=== PATIENT | male | born 1975 | race Caucasian/White ===

== ENCOUNTER 2017-02-13 16:35 | Emergency (ER) | payer SELFPAY ==
[~2017-02-13] VITALS: Ht 170.2 cm; Wt 75.0 kg
[~2017-02-13 16:35] MED LIST: ELVITAB PO; PRAM1 PO
[2017-02-13 16:37] VITALS: BP 133/71; PULSE 90; RESP 14; TEMP 99.5; O2SAT 97
[2017-02-13] MEDS ORDERED: PRAM1 PO (17:00)
[2017-02-13] MEDS ORDERED: ELVI1TAB3 PO (17:00)
[2017-02-13] MEDS ORDERED: IBUP800T23 PO (17:22)
[2017-02-13] MEDS ORDERED: CLIN1CAP5 PO (17:22)
--- NOTE | 2017-02-13 17:23 | PD ---
HPI Chief Complaint: Skin Problem Time Seen by Provider: 17:19 Travel History International Travel<30 days: No Contact w/Intl Traveler<30days: No Traveled to known affect area: No History of Present Illness HPI 31-year-old male presents emergency Department with complaint of an infection to his right third digit that started today. He said he was cleaning out his garage and doesn't know if he got stung by something or something poked him in the finger. He had worsening of symptoms with pain, reddening, and swelling of the finger. Denies fever, vomiting. Reports feeling nauseated earlier. Denies paresthesias, loss of sensation to the affected finger. Reports decreased range of motion at the PIP joint. Has not taken any medications or tried any treatments to alleviate his symptoms. Reports being HIV positive and history of staph infection. Allergies to Benadryl. Has no other medical complaints. Symptoms are moderate in severity. Up-to-date on tetanus vaccination. No other modifying factors or associated signs and symptoms. PFSH Past Medical History Autoimmune Disease: Yes (HIV) Diabetes: Yes Diminished Hearing: No Past Surgical History Other Surgery: Yes (EAR SURG-WISDOM TEETH REMOVED-NASAL SURG-RIGHT HERNIA REPAIR) Social History Alcohol Use: No Tobacco Use: Yes Substance Use: No Allergies-Medications (Allergen,Severity, Reaction): Coded Allergies: diphenhydramine (Unverified Allergy, Mild, 12/15/16) Reported Meds & Prescriptions Reported Meds & Active Scripts Active Ibuprofen 800 Mg Tab 800 Mg PO Q6HR PRN Clindamycin (Clindamycin HCl) 150 Mg Cap 450 Mg PO Q6H 10 Days Reported Genvoya (Jautcigqqkzd-Uramyryvqr-Ctoewigjbrlo-Tenofvir) [phone] Mg Tab 1 Tab PO DAILY Mirapex (Pramipexole Dihydrochloride) 1 Mg Tab 1 Mg PO DAILY Review of Systems Except as stated in HPI: all other systems reviewed are Neg Physical Exam Narrative GENERAL: Well-nourished, well-developed male patient, in no acute distress SKIN: Warm and dry. Right distal third finger with area of erythema, edema, warmth to touch; there is a small blister type area in the middle of the erythema that is fluctuant; finger with limited range of motion of the PIP joint ; sensory intact; less than 3 second cap refill; no lymphangitis. Right upper extremity supple and non-tense with 2+ radial pulse and sensory intact and without erythema or edema. HEAD: Atraumatic. Normocephalic. EYES: Pupils equal and round. No scleral icterus. No injection or drainage. ENT: Mucosa pink and moist. Airway patent. NECK: Trachea midline. CARDIOVASCULAR: Regular rate. RESPIRATORY: No accessory muscle use. GASTROINTESTINAL: Flat. MUSCULOSKELETAL: No obvious deformities. No clubbing. No cyanosis. No edema. NEUROLOGICAL: Awake and alert. Oriented 3. No obvious cranial nerve deficits. Motor grossly within normal limits. Normal speech. PSYCHIATRIC: Appropriate mood and affect; insight and judgment normal. Data Data Last Documented VS Vital Signs Date Time Temp Pulse Resp B/P (MAP) Pulse Ox O2 Delivery O2 Flow Rate FiO2 02/13/17 16:37 99.5 90 14 133/71 (91) 97 Orders Orders Clindamycin Inj (Cleocin Inj) (02/13/17 17:30) Wound Culture And Gram Stain (02/13/17 17:19) Bupivacaine Pf 0.5% Inj (Marcaine Pf 0.5 (02/13/17 17:30) Lidocaine 1% Inj (50 Ml) (Xylocaine 1% I (02/13/17 17:30) Ed Discharge Order (02/13/17 17:24) [facility] Medical Decision Making Medical Screen Exam Complete: Yes Emergency Medical Condition: Yes Medical Record Reviewed: Yes Differential Diagnosis Cellulitis, abscess, wound infection Narrative Course 41-year-old male with cellulitis of the third finger of the right hand. See my procedure note for incision and drainage of blistered area on the finger. Wound culture pending. Tetanus is up-to-date. Clindamycin 600 mg IM administered in the ER. Clindamycin, ibuprofen prescribed for home. Instructed patient to follow up with primary care provider. Patient verbalizes understanding and agreement with treatment plan. Patient is medically cleared and stable for discharge. Discussed reasons to return to the emergency department. Patient agrees with treatment plan. The patients vital signs are stable and the patient is stable for outpatient follow-up and treatment. Patient discharged home, stable and in no acute distress. Procedures Procedure Narrative INCISION AND DRAINAGE OF BLISTER: The area was prepped and was sterilely draped. The right third finger was digitally blocked with 1% lidocaine and 0.5 % bupivacaine. A number 11 scalpel was used to make a less than 0.5 -cm incision across the area of the blister area. The blister was drained. Cultures were obtained. Sterile dressing applied. Diagnosis Primary Impression: Cellulitis of finger of right hand Referrals: [facility] Primary Care Physician Patient Instructions: Abscess (ED), Abscess Follow-up (ED), Cellulitis (ED), General Instructions Departure Forms: Tests/Procedures, Work Release Enter return to work date: Feb 15, 2017 Additional Instructions: Complete full course of antibiotics Warm compresses to the affected area Keep area clean and dry Ibuprofen or Tylenol as directed and as needed for pain and inflammation Follow-up with primary care provider Return to emergency department immediately with worsening of symptoms Med/Other Pt SpecificInfo: Prescription(s) given Scripts Ibuprofen (Ibuprofen) 800 Mg Tab 800 MG PO Q6HR Y for PAIN, #30 TAB 0 Refills Prov: Emmy Smith 02/13/17 Clindamycin (Clindamycin) 150 Mg Cap 450 MG PO Q6H for Infection for 10 Days, #120 CAP 0 Refills Prov: Emmy Smith 02/13/17 Disposition: 01 DISCHARGE HOME Condition: Stable Emmy Smith Feb 13, 2017 17:23
[2017-02-13] MEDS ORDERED: LIDOCAINE HCL 1% 50 ML VIAL INFIL ONE (17:30)
[2017-02-13] MEDS ORDERED: CLINDAMYCIN PHOS 600 MG/4 ML VIAL IM ONE (17:30)
[2017-02-13] MEDS ORDERED: BUPIVACAINE HCL PF 0.5% 10 ML VIAL INFIL ONE (17:30)
== END 2017-02-13 18:18 | disposition home or self-care (01) ==
LOC: NEPK 16:35
DX: L03.011 Cellulitis of right finger (principal); E11.9 Type 2 diabetes mellitus without complications; Z21 Asymptomatic human immunodeficiency virus [HIV] infection status; F17.200 Nicotine dependence, unspecified, uncomplicated
CPT/HCPCS: 10060; 86403; 87070; 87186; 87205; 96372

== ENCOUNTER 2017-05-29 15:15 | Emergency (ER) | payer SELFPAY ==
[~2017-05-29] VITALS: Ht 170.2 cm; Wt 72.0 kg
[~2017-05-29 15:15] MED LIST changes: +CLIN150C14 PO; +ELVI1TAB3 PO; -ELVITAB PO; +IBUP1TAB7 PO
[2017-05-29 15:16] VITALS: BP 152/74; PULSE 90; RESP 16; TEMP 98.5; O2SAT 97
[2017-05-29] MEDS ORDERED: SULFAMETHOXAZOLE-TRIMETHOPRIM DS 800-160 MG TAB PO ONE (16:15)
[2017-05-29] MEDS ORDERED: KETOROLAC TROMETHAMINE 30 MG/ML (IVP) VIAL IV PUSH ONE (16:15)
[2017-05-29] MEDS ORDERED: CLINDAMYCIN 600 MG/NS PREMIX 50 ML IV ONE (16:15)
[2017-05-29] MEDS ORDERED: SODIUM CHLOR 0.9% 1000 ML INJ 1,000 ML IV ONE (16:15)
--- NOTE | 2017-05-29 16:29 | PD ---
HPI Chief Complaint: Fever Time Seen by Provider: 16:12 Travel History International Travel<30 days: No Contact w/Intl Traveler<30days: No Traveled to known affect area: No History of Present Illness HPI The patient is a 42-year-old male who presents to the emergency department for an abscess to the nose. The patient states he's had pain over the medial aspect of the nose since last night, has some increased swelling, mild drainage, and tenderness. He then developed a fever 103.1 at home per his report. The patient take Motrin this morning which did lower the fever. The patient does have a history of HIV, is currently not on antivirals. He does not know what his last CD4 count or viral load was, he is not under the care of the infectious disease physician at this time. He denies any cough, chest pain , nausea, vomiting, diarrhea, abdominal pain, or dysuria. Symptoms are moderate , he denies any alleviating or exacerbating factors. He denies any IV drug abuse and states he is currently living in a clean and sober house and requests that no narcotics be given. PFSH Past Medical History Autoimmune Disease: Yes (HIV) Diabetes: Yes Patient Takes Glucophage: No Diminished Hearing: No ?: Not Past Surgical History Other Surgery: Yes (EAR SURG-WISDOM TEETH REMOVED-NASAL SURG-RIGHT HERNIA REPAIR) Social History Alcohol Use: No Tobacco Use: Yes Substance Use: No Allergies-Medications (Allergen,Severity, Reaction): Coded Allergies: diphenhydramine (Unverified Allergy, Mild, 12/15/16) Reported Meds & Prescriptions Reported Meds & Active Scripts Active Ibuprofen 800 Mg Tab 800 Mg PO Q6HR PRN Clindamycin (Clindamycin HCl) 150 Mg Cap 450 Mg PO Q6H 10 Days Reported Genvoya (Tzytbsbeowkk-Zugubswaoh-Igwaqtxqrowr-Tenofvir) [phone] Mg Tab 1 Tab PO DAILY Mirapex (Pramipexole Dihydrochloride) 1 Mg Tab 1 Mg PO DAILY Review of Systems General / Constitutional: Positive: Fever HENT: Positive: Other (as noted in the history of present illness) Cardiovascular: No: Chest Pain or Discomfort Respiratory: No: Shortness of Breath Gastrointestinal: No: Nausea, Vomiting, Abdominal Pain Musculoskeletal: No: Myalgias Neurologic: No: Dizziness Hematologic/Lymphatic: Positive: Other (history of HIV) Physical Exam Narrative GENERAL: Awake, alert, pleasant 42-year-old male who appears his stated age and is in no acute respiratory distress. SKIN: Focused skin assessment warm/dry. HEAD: Atraumatic. Normocephalic. EYES: Pupils equal and round. No scleral icterus. No injection or drainage. ENT: Inspection of the nose does reveal that the patient has some swelling over the nasal bridge of the anterior aspect with a small amount of scabbing and crusting in the medial aspect of the left naris. Tenderness is noted. NECK: Trachea midline. No JVD. CARDIOVASCULAR: Regular rate and rhythm. No murmur appreciated. RESPIRATORY: No accessory muscle use. Clear to auscultation. Breath sounds equal bilaterally. GASTROINTESTINAL: Abdomen soft, non-tender, nondistended. MUSCULOSKELETAL: No obvious deformities. No clubbing. No cyanosis. No edema. NEUROLOGICAL: Awake and alert. No obvious cranial nerve deficits. Motor grossly within normal limits. Normal speech. PSYCHIATRIC: Appropriate mood and affect; insight and judgment normal. Data Data Last Documented VS Vital Signs Date Time Temp Pulse Resp B/P (MAP) Pulse Ox O2 Delivery O2 Flow Rate FiO2 05/29/17 15:16 98.5 90 16 152/74 (100) 97 Orders Orders Complete Blood Count With Diff (05/29/17 16:13) Lactic Acid (05/29/17 16:13) Blood Culture (05/29/17 16:13) Comprehensive Metabolic Panel (05/29/17 16:13) Clindamycin 600 Mg/Ns Premix (Cleocin 60 (05/29/17 16:15) Sulfamet-Trimeth Ds 800-160 Mg (Bactrim (05/29/17 16:15) Sodium Chlor 0.9% 1000 Ml Inj (Ns 1000 M (05/29/17 16:15) Ketorolac Inj (Toradol Inj) (05/29/17 16:15) Labs Laboratory Tests Test 05/29/17 16:45 White Blood Count 5.4 TH/MM3 Red Blood Count 4.77 MIL/MM3 Hemoglobin 14.0 GM/DL Hematocrit 40.1 % Mean Corpuscular Volume 84.1 FL Mean Corpuscular Hemoglobin 29.4 PG Mean Corpuscular Hemoglobin Concent 34.9 % Red Cell Distribution Width 13.2 % Platelet Count 160 TH/MM3 Mean Platelet Volume 7.7 FL Neutrophils (%) (Auto) 58.9 % Lymphocytes (%) (Auto) 28.3 % Monocytes (%) (Auto) 10.9 % Eosinophils (%) (Auto) 1.6 % Basophils (%) (Auto) 0.3 % Neutrophils # (Auto) 3.2 TH/MM3 Lymphocytes # (Auto) 1.5 TH/MM3 Monocytes # (Auto) 0.6 TH/MM3 Eosinophils # (Auto) 0.1 TH/MM3 Basophils # (Auto) 0.0 TH/MM3 CBC Comment AUTO DIFF Differential Comment AUTO DIFF CONFIRMED Platelet Estimate NORMAL Platelet Morphology Comment NORMAL Red Cell Morphology Comment NORMAL Blood Urea Nitrogen 12 MG/DL Creatinine 0.85 MG/DL Random Glucose 137 MG/DL Total Protein 8.0 GM/DL Albumin 3.6 GM/DL Calcium Level 8.6 MG/DL Alkaline Phosphatase 98 U/L Aspartate Amino Transf (AST/SGOT) 24 U/L Alanine Aminotransferase (ALT/SGPT) 31 U/L Total Bilirubin 0.5 MG/DL Sodium Level 138 MEQ/L Potassium Level 4.2 MEQ/L Chloride Level 105 MEQ/L Carbon Dioxide Level 27.4 MEQ/L Anion Gap 6 MEQ/L Estimat Glomerular Filtration Rate 98 ML/MIN Lactic Acid Level 1.9 mmol/L MDM Medical Decision Making Medical Screen Exam Complete: Yes Emergency Medical Condition: Yes Medical Record Reviewed: Yes Interpretation(s) Laboratory Tests Test 05/29/17 16:45 White Blood Count 5.4 TH/MM3 Red Blood Count 4.77 MIL/MM3 Hemoglobin 14.0 GM/DL Hematocrit 40.1 % Mean Corpuscular Volume 84.1 FL Mean Corpuscular Hemoglobin 29.4 PG Mean Corpuscular Hemoglobin Concent 34.9 % Red Cell Distribution Width 13.2 % Platelet Count 160 TH/MM3 Mean Platelet Volume 7.7 FL Neutrophils (%) (Auto) 58.9 % Lymphocytes (%) (Auto) 28.3 % Monocytes (%) (Auto) 10.9 % Eosinophils (%) (Auto) 1.6 % Basophils (%) (Auto) 0.3 % Neutrophils # (Auto) 3.2 TH/MM3 Lymphocytes # (Auto) 1.5 TH/MM3 Monocytes # (Auto) 0.6 TH/MM3 Eosinophils # (Auto) 0.1 TH/MM3 Basophils # (Auto) 0.0 TH/MM3 CBC Comment AUTO DIFF Differential Comment AUTO DIFF CONFIRMED Platelet Estimate NORMAL Platelet Morphology Comment NORMAL Red Cell Morphology Comment NORMAL Blood Urea Nitrogen 12 MG/DL Creatinine 0.85 MG/DL Random Glucose 137 MG/DL Total Protein 8.0 GM/DL Albumin 3.6 GM/DL Calcium Level 8.6 MG/DL Alkaline Phosphatase 98 U/L Aspartate Amino Transf (AST/SGOT) 24 U/L Alanine Aminotransferase (ALT/SGPT) 31 U/L Total Bilirubin 0.5 MG/DL Sodium Level 138 MEQ/L Potassium Level 4.2 MEQ/L Chloride Level 105 MEQ/L Carbon Dioxide Level 27.4 MEQ/L Anion Gap 6 MEQ/L Estimat Glomerular Filtration Rate 98 ML/MIN Lactic Acid Level 1.9 mmol/L Differential Diagnosis Differential diagnosis includes abscess, cellulitis, bacteremia, septicemia, sepsis, SIRS, immunocompromise, infected wound. Narrative Course IV was established, labs are drawn and sent, and the patient was placed on cardiac telemetry monitoring and continuous pulse oximetry monitoring. Blood culture and lactic acid were sent to lab. The patient was administered clindamycin 600 mg intravenously and Bactrim times one with Toradol 30 mg intravenously and 1 L of IV fluids. White count is no. Lactic acid is 1.9. Patient does not meet sepsis criteria. The patient will be treated for MRSA with history of MRSA with clindamycin and Bactrim. He is advised to follow-up with a primary physician, I will refer him to the local clinic. Diagnosis Primary Impression: Nasal septal abscess Referrals: [facility] call for appointment Patient Instructions: General Instructions Additional Instructions: Please provide the patient a copy of his lab results at discharge. Follow-up with your primary physician. Return if symptoms worsen or progress. Medications as directed. Med/Other Pt SpecificInfo: Prescription(s) given Scripts Ibuprofen (Ibuprofen) 600 Mg Tab 600 MG PO Q6H Y for Pain/Inflammation, #20 TAB 0 Refills Prov: Gary Bauman MD 05/29/17 Clindamycin (Cleocin) 150 Mg Cap 150 MG PO Q6H for Infection for 10 Days, #40 CAP 0 Refills Prov: Gary Bauman MD 05/29/17 Sulfamethoxazole-Trimethoprim (Bactrim DS) 800-160 Mg Tab 1 TAB PO BID for Infection, #20 TAB 0 Refills Prov: Gary Bauman MD 05/29/17 Disposition: 01 DISCHARGE HOME Condition: Stable Gary Bauman MD May 29, 2017 16:29
[2017-05-29 17:16] LABS: AUTOMATED NEUTROPHIL # 3.2 TH/MM3 (1.8-7.7); BASOPHIL % 0.3 % (0.0-2.0); EOSINOPHIL # 0.1 TH/MM3 (0-0.4); EOSINOPHIL % 1.6 % (0.0-4.0); HEMATOCRIT 40.1 % (39.0-51.0); LYMPH % 28.3 % (9.0-44.0); LYMPHOCYTE # 1.5 TH/MM3 (1.0-4.8); MEAN CELL VOLUME 84.1 FL (80.0-100.0); MEAN CORPUSCULAR HEMOGLOBIN 29.4 PG (27.0-34.0); MEAN CORPUSCULAR HGB CONC 34.9 % (32.0-36.0); MEAN PLATELET VOLUME 7.7 FL (7.0-11.0); MONO % 10.9 % (0.0-8.0); MONOCYTE # 0.6 TH/MM3 (0-0.9); NEUT % 58.9 % (16.0-70.0); PLATELET COUNT 160 TH/MM3 (150-450); RED BLOOD COUNT 4.77 MIL/MM3 (4.50-5.90); RED CELL DISTRIBUTION WIDTH 13.2 % (11.6-17.2); WHITE BLOOD COUNT 5.4 TH/MM3 (4.0-11.0)
[2017-05-29 17:56] LABS: ALKALINE PHOSPHATASE 98 U/L (45-117); ALT (GPT) 31 U/L (12-78); TOTAL BILIRUBIN ADULT 0.5 MG/DL (0.2-1.0)
[2017-05-29 18:02] LABS: ALBUMIN 3.6 GM/DL (3.4-5.0); AST (GOT) 24 U/L (15-37); BICARBONATE 27.4 MEQ/L (21.0-32.0); BLOOD UREA NITROGEN 12 MG/DL (7-18); CALCIUM 8.6 MG/DL (8.5-10.1); CHLORIDE 105 MEQ/L (98-107); CREATININE 0.85 MG/DL (0.60-1.30); GLOMERULAR FILTRATION RATE 98 ML/MIN (>89); GLUCOSE,RANDOM 137 MG/DL (74-106); SODIUM (NA) 138 MEQ/L (136-145)
[2017-05-29 18:24] VITALS: BP 129/84; PULSE 72; PULSE 92; RESP 18; O2SAT 100
[2017-05-29] MEDS ORDERED: CLIN150 PO (18:25)
[2017-05-29] MEDS ORDERED: BACT800T5 PO (18:25)
[2017-05-29] MEDS ORDERED: IBUP-232 PO (18:25)
== END 2017-05-29 18:59 | disposition home or self-care (01) ==
LOC: NEPC 15:15
DX: J34.0 Abscess, furuncle and carbuncle of nose (principal); Z21 Asymptomatic human immunodeficiency virus [HIV] infection status; Z72.0 Tobacco use
CPT/HCPCS: 80053; 83605; 85025; 87040; 96361; 96374; 96375; 99284; J1885; J7030

== ENCOUNTER 2017-06-21 12:47 | Emergency (ER) | payer SELFPAY ==
[~2017-06-21 12:47] MED LIST changes: +BACT800T5 PO; +CLIN150 PO; +IBUP-232 PO
[2017-06-21 12:50] VITALS: BP 160/88; PULSE 82; RESP 16; TEMP 98.1; O2SAT 98
[2017-06-21] MEDS ORDERED: SODIUM CHLOR 0.9% 1000 ML INJ 1,000 ML IV SCH (13:36)
[2017-06-21] MEDS ORDERED: SODIUM CHLORIDE 0.9% FLUSH 10 ML FLUSH IV FLUSH PRN ×2 (13:45)
[2017-06-21] MEDS ORDERED: PENICILLIN G POTASSIUM INJ 2,500,000 UNITS in SODIUM CHLORIDE 0.9% INJ 100 ML IV ONE (14:00)
--- NOTE | 2017-06-21 14:02 | PD ---
HPI Chief Complaint: Skin Problem Time Seen by Provider: 13:36 Travel History International Travel<30 days: No Contact w/Intl Traveler<30days: No Traveled to known affect area: No History of Present Illness HPI 42-year-old male presents emergency department with dry rash which is started yesterday. Patient denies fever, chills, or other symptoms. He states he was ill 2 weeks ago with a flulike illness. Patient states he was treated 3 weeks ago for possible MRSA infection in his left naris. Patient states he is HIV positive and not under treatment since March of last year due to insurance issues. Patient states history of syphilis in the past he is concerned this is a syphilis flare. Patient denies eye pain, mouth patches, alopecia, or abdominal pain or cough. He denies any chancres, or urinary symptoms. His appetite is normal. And he has not lost significant amounts of weight. He is awaiting insurance changes to get back into therapy for his HIV. Patient denies significant headache, but does have some discomfort in the neck. He denies joint pain. He is allergic to diphenhydramine. PFSH Past Medical History Autoimmune Disease: Yes (HIV) Diabetes: Yes Patient Takes Glucophage: No Diminished Hearing: No Genitourinary: Yes (syphillis hx) Past Surgical History Other Surgery: Yes (EAR SURG-WISDOM TEETH REMOVED-NASAL SURG-RIGHT HERNIA REPAIR) Social History Alcohol Use: No Tobacco Use: Yes Substance Use: No Allergies-Medications (Allergen,Severity, Reaction): Coded Allergies: diphenhydramine (Unverified Adverse Reaction, Mild, interacts with restless legs, 06/21/17) Reported Meds & Prescriptions Reported Meds & Active Scripts Active No Active Prescriptions or Reported Medications Review of Systems Except as stated in HPI: all other systems reviewed are Neg General / Constitutional: No: Fever, Chills Eyes: No: Diploplia, Blurred Vision, Photophobia, Drainage, Redness, Foreign Body Sensation, Pain, Tearing, Blind Spots, Visual changes, Blindness HENT: Positive: Neck Stiffness, Neck Pain, No: Headaches, Vertigo, Lightheadedness, Sore Throat, Rhinitis, Rhinorrhea, Congestion, Nosebleed, Masses, Gingival Bleeding, Dental Difficulties, Ear Discharge, Earache Cardiovascular: No: Chest Pain or Discomfort Respiratory: No: Cough, Shortness of Breath, Wheezing Gastrointestinal: No: Nausea, Vomiting, Diarrhea, Abdominal Pain Genitourinary: No: Urgency, Frequency, Dysuria, Discharge Musculoskeletal: No: Myalgias, Arthralgias, Limited ROM, Pain Skin: No Rash Neurologic: No: Weakness Psychiatric: No: Depression Endocrine: No: Polydipsia Hematologic/Lymphatic: No: Easy Bruising Physical Exam Narrative GENERAL: Patient appears in no acute distress per SKIN: Warm and dry. Patient has a dry lacy appearing erythematous rash to the trunk, arms, and proximal legs. There are no lesions on the palms or feet. HEAD: Atraumatic. Normocephalic. EYES: Pupils equal and round. No scleral icterus. No injection or drainage. ENT: No nasal bleeding or discharge. Mucous membranes pink and moist. Mucous membranes are normal. Tongue is normal TMs are clear bilaterally. Pharynx is clear. Airways patent. NECK: Trachea midline. Patient has tender inflamed posterior lymphadenitis of the cervical lymph nodes. Patient is however able to put his chin to chest without increased pain or headache. CARDIOVASCULAR: Regular rate and rhythm. No murmurs gallops or rubs appreciated RESPIRATORY: No accessory muscle use. Clear to auscultation. Breath sounds equal bilaterally. GASTROINTESTINAL: Abdomen soft, non-tender, nondistended. Hepatic and splenic margins not palpable. MUSCULOSKELETAL: Extremities without clubbing, cyanosis, or edema. No obvious deformities. NEUROLOGICAL: Awake and alert. No obvious cranial nerve deficits. Motor grossly within normal limits. Five out of 5 muscle strength in the arms and legs. Normal speech. PSYCHIATRIC: Appropriate mood and affect; insight and judgment normal. Data Data Last Documented VS Vital Signs Date Time Temp Pulse Resp B/P (MAP) Pulse Ox O2 Delivery O2 Flow Rate FiO2 06/21/17 12:50 98.1 82 16 160/88 (112) 98 Orders Orders Complete Blood Count With Diff (06/21/17 12:56) Rapid Plasmin Reagin Screen (06/21/17 12:56) Urinalysis - C+S If Indicated (06/21/17 12:56) Gc And Chlamydia Pcr (06/21/17 12:56) Comprehensive Metabolic Panel (06/21/17 13:36) Lactic Acid (06/21/17 13:36) Iv Access Insert/Monitor (06/21/17 13:36) Ecg Monitoring (06/21/17 13:36) Oximetry (06/21/17 13:36) Sodium Chloride 0.9% Flush (Ns Flush) (06/21/17 13:45) Sodium Chlor 0.9% 1000 Ml Inj (Ns 1000 M (06/21/17 13:36) Sodium Chloride 0.9% Flush (Ns Flush) (06/21/17 13:45) Chest, Single Ap (06/21/17 13:36) Penicillin G Potassium Inj (Pfizerpen-G (06/21/17 14:00) Penicillin G Benzathine Inj (Bicillin L- (06/21/17 15:30) Labs Laboratory Tests Test 06/21/17 13:30 06/21/17 13:58 Urine Color YELLOW Urine Turbidity CLEAR Urine pH 5.5 Urine Specific [place] 1.016 Urine Protein NEG mg/dL Urine Glucose (UA) NEG mg/dL Urine Ketones NEG mg/dL Urine Occult Blood NEG Urine Nitrite NEG Urine Bilirubin NEG Urine Urobilinogen LESS THAN 2.0 MG/DL Urine Leukocyte Esterase NEG Urine RBC LESS THAN 1 /hpf Urine Hyaline Casts 4 /lpf Urine Mucus FEW /lpf Microscopic Urinalysis Comment CULT NOT INDICATED White Blood Count 4.1 TH/MM3 Red Blood Count 4.76 MIL/MM3 Hemoglobin 13.6 GM/DL Hematocrit 39.7 % Mean Corpuscular Volume 83.4 FL Mean Corpuscular Hemoglobin 28.6 PG Mean Corpuscular Hemoglobin Concent 34.3 % Red Cell Distribution Width 13.4 % Platelet Count 188 TH/MM3 Mean Platelet Volume 7.3 FL Neutrophils (%) (Auto) 61.0 % Lymphocytes (%) (Auto) 27.7 % Monocytes (%) (Auto) 8.6 % Eosinophils (%) (Auto) 2.2 % Basophils (%) (Auto) 0.5 % Neutrophils # (Auto) 2.5 TH/MM3 Lymphocytes # (Auto) 1.1 TH/MM3 Monocytes # (Auto) 0.4 TH/MM3 Eosinophils # (Auto) 0.1 TH/MM3 Basophils # (Auto) 0.0 TH/MM3 CBC Comment DIFF FINAL Differential Comment Blood Urea Nitrogen 9 MG/DL Creatinine 0.85 MG/DL Random Glucose 102 MG/DL Total Protein 8.3 GM/DL Albumin 3.6 GM/DL Calcium Level 8.7 MG/DL Alkaline Phosphatase 88 U/L Aspartate Amino Transf (AST/SGOT) 19 U/L Alanine Aminotransferase (ALT/SGPT) 17 U/L Total Bilirubin 0.4 MG/DL Sodium Level 140 MEQ/L Potassium Level 4.0 MEQ/L Chloride Level 106 MEQ/L Carbon Dioxide Level 29.8 MEQ/L Anion Gap 4 MEQ/L Estimat Glomerular Filtration Rate 98 ML/MIN Lactic Acid Level 0.7 mmol/L MDM Medical Decision Making Medical Screen Exam Complete: Yes Emergency Medical Condition: Yes Medical Record Reviewed: Yes Differential Diagnosis Diffuse rash. Secondary syphilis. HIV out of treatment. Narrative Course Labs ordered including CBC, CMP, urine GC chlamydia, RPR titer, and lactic acid. Chest x-ray and EKG were ordered. EKG and chest x-ray are unremarkable. IV access is obtained the patient was given 1000 mL's normal saline bolus. Patient is given 2.4 million units penicillin G IM. Serum RPR, and urine GC chlamydia are pending. Patient should follow with Dr. Graham Tavarez, our infectious disease specialist. Dr. Graham Tavarez [address] [facility]. 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 Chest x-ray and EKG were ordered. EKG and chest x-ray are unremarkable. IV access is obtained the patient was given 1000 mL's normal saline bolus. Patient is given 2.4 million units penicillin G IM. Serum RPR, and urine GC chlamydia are pending. Patient should follow with Dr. Graham Tavarez, our infectious disease specialist. [address] [facility] [place]. [address] Med/Other Pt SpecificInfo: No Meds Exist/No RX given Scripts No Active Prescriptions or Reported Meds Disposition: 01 DISCHARGE HOME Condition: Stable Kyle Cortez Jun 21, 2017 14:02
[2017-06-21 14:13] LABS: BILIRUBIN, URINE NEG (NEG); BLOOD, URINE NEG (NEG); GLUCOSE,URINE NEG (NEG); HYALINE CAST, URINE 4 /lpf (RARE); KETONE, URINE NEG (NEG); MUCUS URINE FEW /lpf (OCC); NITRITE,URINE NEG (NEG); PH, URINE 5.5 (5.0-8.5); URINE COLOR YELLOW (YELLW/STRAW); URINE LEUKOCYTE ESTERASE NEG (NEG)
[2017-06-21] MEDS ORDERED: BENZATHINE IM ONE (14:15)
[2017-06-21] MEDS ORDERED: PROCAINE IM ONE (14:15)
[2017-06-21 14:20] LABS: AUTOMATED NEUTROPHIL # 2.5 TH/MM3 (1.8-7.7); BASOPHIL % 0.5 % (0.0-2.0); EOSINOPHIL # 0.1 TH/MM3 (0-0.4); EOSINOPHIL % 2.2 % (0.0-4.0); HEMATOCRIT 39.7 % (39.0-51.0); HEMOGLOBIN 13.6 GM/DL (13.0-17.0); LYMPH % 27.7 % (9.0-44.0); LYMPHOCYTE # 1.1 TH/MM3 (1.0-4.8); MEAN CELL VOLUME 83.4 FL (80.0-100.0); MEAN CORPUSCULAR HEMOGLOBIN 28.6 PG (27.0-34.0); MEAN CORPUSCULAR HGB CONC 34.3 % (32.0-36.0); MEAN PLATELET VOLUME 7.3 FL (7.0-11.0); MONO % 8.6 % (0.0-8.0); MONOCYTE # 0.4 TH/MM3 (0-0.9); PLATELET COUNT 188 TH/MM3 (150-450); RED BLOOD COUNT 4.76 MIL/MM3 (4.50-5.90); RED CELL DISTRIBUTION WIDTH 13.4 % (11.6-17.2); WHITE BLOOD COUNT 4.1 TH/MM3 (4.0-11.0)
[2017-06-21 14:43] LABS: ALBUMIN 3.6 GM/DL (3.4-5.0); ALT (GPT) 17 U/L (12-78); AST (GOT) 19 U/L (15-37); BICARBONATE 29.8 MEQ/L (21.0-32.0); BLOOD UREA NITROGEN 9 MG/DL (7-18); CALCIUM 8.7 MG/DL (8.5-10.1); CHLORIDE 106 MEQ/L (98-107); CREATININE 0.85 MG/DL (0.60-1.30); GLOMERULAR FILTRATION RATE 98 ML/MIN (>89); GLUCOSE,RANDOM 102 MG/DL (74-106); SODIUM (NA) 140 MEQ/L (136-145)
[2017-06-21 14:45] LABS: ALKALINE PHOSPHATASE 88 U/L (45-117); TOTAL BILIRUBIN ADULT 0.4 MG/DL (0.2-1.0); TOTAL PROTEIN 8.3 GM/DL (6.4-8.2)
--- NOTE | 2017-06-21 14:53 | RADRPT ---
EXAM DATE/TIME: 06/21/2017 13:51 [facility] COMPARISON: SHOULDER RIGHT COMPLETE (>2VWS), February 15, 2016, 4:53. INDICATIONS : Fever. MEDICAL HISTORY : HIV Syphilis SURGICAL HISTORY : None. ENCOUNTER: Initial ACUITY: 1 day PAIN SCORE: 0/10 LOCATION: Bilateral chest FINDINGS: A single view of the chest demonstrates the lungs to be symmetrically aerated without evidence of mas s, infiltrate or effusion. The cardiomediastinal contours are unremarkable. Osseous structures are intact. CONCLUSION: 1. No acute cardiopulmonary findings. Graham Leahy MD on June 21, 2017 at 14:51 Board Certified Radiologist. This report was verified electronically.
[2017-06-21] MEDS ORDERED: PENICILLIN G BENZATHINE 2,400,000 UNITS/4 ML SYRINGE IM ONE (15:30)
== END 2017-06-21 20:57 | disposition home or self-care (01) ==
LOC: NEPD 12:47
DX: A51.49 Other secondary syphilitic conditions (principal); B20 Human immunodeficiency virus [HIV] disease; E11.9 Type 2 diabetes mellitus without complications; Z72.0 Tobacco use
CPT/HCPCS: 71045; 80053; 81001; 83605; 85025; 86592; 87491; 87591; 96372; 99284; J0561; J7030

== ENCOUNTER 2017-06-24 15:09 | Emergency (ER) | payer SELFPAY ==
[~2017-06-24] VITALS: Ht 172.7 cm; Wt 80.0 kg
[2017-06-24 15:10] VITALS: BP 145/87; PULSE 80; RESP 16; TEMP 98.7; O2SAT 98
--- NOTE | 2017-06-24 16:48 | PD ---
HPI Chief Complaint: Cold / Flu Symptoms Time Seen by Provider: 16:11 Travel History International Travel<30 days: No Contact w/Intl Traveler<30days: No Traveled to known affect area: No History of Present Illness HPI 42 year old male presents to the emergency department for flulike symptoms that started 3 days ago. Patient was seen here 3 days ago and lab work was completed. The patient was given penicillin IM for secondary syphilis after the patient presented with a generalized rash in a history syphilis. Patient is HIV positive, states he hasn't taken his HIV medication since January. The patient states that after he was seen here, he went home and had flulike symptoms including fever, chills, cough, congestion. The patient states that he took his temperature last night it was 99. He is afebrile today. The patient denies any chest pain. No abdominal pain. No nausea, vomiting, diarrhea. Patient also states that he tripped and fell this morning and landed on his right shoulder. He denies any head injury or LOC. Patient states he has left neck pain that has been ongoing for 3 days, not from the fall. Moderate severity. No exacerbating or alleviating factors. PFSH Past Medical History Autoimmune Disease: Yes (HIV) Diabetes: Yes Diminished Hearing: No Genitourinary: Yes (syphillis hx) Past Surgical History Other Surgery: Yes (EAR SURG-WISDOM TEETH REMOVED-NASAL SURG-RIGHT HERNIA REPAIR) Social History Alcohol Use: No Tobacco Use: Yes Substance Use: No Allergies-Medications (Allergen,Severity, Reaction): Coded Allergies: diphenhydramine (Unverified Adverse Reaction, Mild, interacts with restless legs, 06/21/17) Reported Meds & Prescriptions Reported Meds & Active Scripts Active No Active Prescriptions or Reported Medications Review of Systems Except as stated in HPI: all other systems reviewed are Neg Physical Exam Narrative GENERAL: Well-nourished, well-developed male patient, ambulatory. Afebrile. SKIN: Focused skin assessment warm/dry. Patient has some erythematous patches noted to the abdomen. HEAD: Normocephalic. Atraumatic. ENT: Mucosa pink and moist. No erythema or exudates. No uvular edema. No uvular , palatal, or tonsillar deviation. Airway patent. Nasal turbinates appear normal without nasal blood, purulent drainage or septal hematoma. Bilateral tympanic membranes are clear without erythema or perforation. EYES: No scleral icterus. No injection or drainage. NECK: Supple, trachea midline. No JVD or lymphadenopathy. No nuchal rigidity. CARDIOVASCULAR: Regular rate and rhythm without murmurs, gallops, or rubs. RESPIRATORY: Breath sounds equal bilaterally. No accessory muscle use. Lungs sounds are clear to auscultation. GASTROINTESTINAL: Abdomen soft, non-tender, nondistended. MUSCULOSKELETAL: No cyanosis, or edema. Patient's tenderness over right shoulder with reduced flexion due to pain. Patient has tenderness over left trapezius muscle BACK: Nontender without obvious deformity. No CVA tenderness. No midline spinal tenderness. Data Data Last Documented VS Vital Signs Date Time Temp Pulse Resp B/P (MAP) Pulse Ox O2 Delivery O2 Flow Rate FiO2 06/24/17 15:10 98.7 80 16 145/87 (106) 98 Orders Orders Influenzae A/B Antigen (06/24/17 16:42) Chest, Pa & Lat (06/24/17 ) Shoulder, Complete (>2vws) (06/24/17 ) [facility] Medical Decision Making Medical Screen Exam Complete: Yes Emergency Medical Condition: Yes Medical Record Reviewed: Yes Interpretation(s) Last Impressions Shoulder X-Ray 06/24/17 0000 Signed Impressions: Service Date/Time: June 17:04 - CONCLUSION: 1. No evidence of acute fracture or dislocation. 2. Stable, chronic, Hill-Sachs deformity. The Freddy Saldivar MD Chest X-Ray 06/24/17 0000 Signed Impressions: Service Date/Time: June 16:58 - CONCLUSION: No acute cardiopulmonary disease. Freddy Saldivar MD Differential Diagnosis Influenza versus viral syndrome versus URI versus shoulder contusion versus shoulder fracture versus shoulder dislocation Narrative Course 42-year-old male presents to the emergency department for evaluation of flulike symptoms that started 3 days ago. Patient was treated here for secondary syphilis 3 days ago. He has lab work completed at that time. His CBC was unremarkable except for slightly elevated monocytes. CMP was unremarkable. Lactic acid was 0.7. Chest x-ray showed no acute abnormality. His RPR was positive and he was treated with IM penicillin. I discussed the case with my attending physician, Dr. Watson, who agrees with plan and disposition. Influenza swab is ordered and pending. Chest x-ray and x-ray of the right shoulder are ordered and pending. Influenza is negative. Chest x-ray shows no acute cardiopulmonary disease. X- ray of the right shoulder shows no acute bony abnormality. I discussed results with patient. Due to patient's immunodeficiency status, I will prescribe him azithromycin to be cautious. He verbalizes agreement and understanding. He is strongly encouraged to follow-up with infectious disease physician a primary care physician. He verbalizes agreement and understanding. The patient was discharged in stable condition with instructions, including return instructions and follow up instructions. Diagnosis Primary Impression: Upper respiratory infection Qualified Codes: J06.9 - Acute upper respiratory infection, unspecified Referrals: Infectious Disease Specialist call for appointment Primary Care Physician call for appointment Patient Instructions: General Instructions, Upper Respiratory Infection (ED) Additional Instructions: Take antibiotic as directed until gone. Follow-up with infectious disease physician and primary care physician. Return to the emergency department for any acute worsening of symptoms. Med/Other Pt SpecificInfo: Prescription(s) given Scripts Azithromycin (Zithromax Z-Yasmany) 250 Mg Dspk 250 MG PO DIRECTED for Infection, #1 DSPK 0 Refills 500 MG (2 tabs) day 1, then 1 tab days 2-5. Prov: Terri Garcia 06/24/17 Disposition: DISCHARGE HOME Condition: Stable Terri Garcia Jun 24, 2017 16:48
--- NOTE | 2017-06-24 17:16 | RADRPT ---
EXAM DATE/TIME: 06/24/2017 16:58 [facility] COMPARISON: CHEST PA & LAT, October 03, 2015, 12:32. INDICATIONS : Productive cough, congestion, fever and short of breath for two days. Smoker. MEDICAL HISTORY : None. SURGICAL HISTORY : None. ENCOUNTER: Initial ACUITY: 2 days PAIN SCORE: 0/10 LOCATION: Bilateral chest FINDINGS: PA and lateral views of the chest demonstrate the lungs to be symmetrically aerated without evidence of mass, infiltrate or effusion. The cardiomediastinal contours are unremarkable. Osseous structure s are intact. CONCLUSION: No acute cardiopulmonary disease. Freddy Saldivar MD on June 24, 2017 at 17:14 Board Certified Radiologist. This report was verified electronically.
--- NOTE | 2017-06-24 17:17 | RADRPT ---
EXAM DATE/TIME: 06/24/2017 17:04 [facility] COMPARISON: SHOULDER RIGHT COMPLETE (>2VWS), February 15, 2016, 4:53. INDICATIONS : Patient states he dislocates his shoulder out multiple times throughout the past two years. MEDICAL HISTORY : None. SURGICAL HISTORY : None. ENCOUNTER: Initial ACUITY: >1 year PAIN SCORE: 2/10 LOCATION: Right Shoulder FINDINGS: Multiple view examination of the right shoulder demonstrates no evidence of fracture or dislocation. Chronic deformity of the superior posterior humerus, characteristic of Hill-Sachs deformity, stable from prior. The glenohumeral and acromioclavicular joints are maintained. There is normal range of motion between internal and external rotation. The visualized right upper ribs are intact. Bony min eralization is normal. CONCLUSION: 1. No evidence of acute fracture or dislocation. 2. Stable, chronic, Hill-Sachs deformity. The Freddy Saldivar MD on June 24, 2017 at 17:15 Board Certified Radiologist. This report was verified electronically.
[2017-06-24] MEDS ORDERED: ZITHTAB PO (18:25)
== END 2017-06-24 18:50 | disposition home or self-care (01) ==
LOC: NEPK 15:09
DX: B20 Human immunodeficiency virus [HIV] disease (principal); J06.9 Acute upper respiratory infection, unspecified; M54.2 Cervicalgia; Z72.0 Tobacco use
CPT/HCPCS: 71046; 73030; 87804; 99284

== ENCOUNTER 2017-08-17 23:45 | Inpatient (IN) | payer SELFPAY ==
[~2017-08-17] VITALS: Ht 170.2 cm; Wt 75.3 kg
[~2017-08-17 23:45] MED LIST changes: -BACT800T5 PO; -CLIN150 PO; -CLIN150C14 PO; -ELVI1TAB3 PO; -IBUP-232 PO; -IBUP1TAB7 PO; -PRAM1 PO; +ZITHTAB PO
[2017-08-18] VITALS (7 sets, daily range): BP systolic 102–133; BP diastolic 54–75; PULSE 78–112; RESP 13–20; TEMP 98.3–102.4; O2SAT 95–100
[2017-08-18] MEDS ORDERED: SODIUM CHLOR 0.9% 1000 ML INJ 400 ML IV ONE (03:12)
[2017-08-18] MEDS ORDERED: SODIUM CHLOR 0.9% 1000 ML INJ 1,000 ML IV ONE ×3 (03:12→06:00)
[2017-08-18] MEDS ORDERED: VANCOMYCIN INJ 1,000 MG in SODIUM CHLOR 0.9% 250 ML INJ 250 ML IV ONE (03:15)
[2017-08-18] MEDS ORDERED: CEFEPIME INJ 2,000 MG in SODIUM CHLORIDE 0.9% INJ 100 ML IV ONE (03:15)
[2017-08-18] MEDS ORDERED: IBUPROFEN 800 MG TAB PO ONE (03:15)
[2017-08-18] MEDS ORDERED: ONDANSETRON HCL 4 MG/2 ML VIAL IV PUSH ONE (03:15)
[2017-08-18] MEDS ORDERED: ACETAMINOPHEN 325 MG TAB PO ONE (03:15)
--- NOTE | 2017-08-18 03:50 | RADRPT ---
EXAM DATE/TIME: 08/18/2017 03:18 [facility] COMPARISON: CHEST PA & LAT, June 24, 2017, 16:58. INDICATIONS : Fever, cough. MEDICAL HISTORY : None. SURGICAL HISTORY : None. ENCOUNTER: Initial ACUITY: 1 day PAIN SCORE: 0/10 LOCATION: Bilateral chest FINDINGS: A single view of the chest demonstrates the lungs to be symmetrically aerated without evidence of mas s, infiltrate or effusion. The cardiomediastinal contours are unremarkable. Osseous structures are intact. CONCLUSION: No evidence of acute cardiopulmonary disease. Daryl Kaur MD on August 18, 2017 at 3:48 Board Certified Radiologist. This report was verified electronically.
[2017-08-18 04:05] LABS: AUTOMATED NEUTROPHIL # 12.5 TH/MM3 (1.8-7.7); BASOPHIL % 0.2 % (0.0-2.0); HEMATOCRIT 43.8 % (39.0-51.0); HEMOGLOBIN 15.4 GM/DL (13.0-17.0); LYMPHOCYTE # 2.3 TH/MM3 (1.0-4.8); MEAN CELL VOLUME 83.3 FL (80.0-100.0); MEAN CORPUSCULAR HEMOGLOBIN 29.2 PG (27.0-34.0); MEAN CORPUSCULAR HGB CONC 35.1 % (32.0-36.0); MEAN PLATELET VOLUME 8.1 FL (7.0-11.0); MONO % 8.6 % (0.0-8.0); MONOCYTE # 1.4 TH/MM3 (0-0.9); NEUT % 77.2 % (16.0-70.0); PLATELET COUNT 157 TH/MM3 (150-450); RED BLOOD COUNT 5.26 MIL/MM3 (4.50-5.90); RED CELL DISTRIBUTION WIDTH 13.3 % (11.6-17.2); WHITE BLOOD COUNT 16.3 TH/MM3 (4.0-11.0)
--- NOTE | 2017-08-18 04:29 | PD ---
HPI Chief Complaint: Cold / Flu Symptoms Time Seen by Provider: 03:12 Travel History International Travel<30 days: No Contact w/Intl Traveler<30days: No Traveled to known affect area: No History of Present Illness HPI 42-year-old male presents to the emergency department complaining of fever cough myalgias arthralgias headache dysuria frequency flank pain. Patient denies penile discharge. Patient has history of HIV and is noncompliant with his medications. Patient did not have the flu vaccine. Cough has been nonproductive. Patient denies nausea vomiting. Patient denies abdominal pain. Patient did have episode of diarrhea yesterday but none today. No report of dietary indiscretion or well water ingestion or foreign travel. Patient is taken no medications for discomfort or for fever such as acetaminophen or ibuprofen. PFSH Past Medical History Narrative Medical HIV diabetes; tobacco use; nursing notes reviewed Autoimmune Disease: Yes (HIV) Diabetes: Yes Patient Takes Glucophage: No Diminished Hearing: No Genitourinary: Yes (syphillis hx) Tetanus Vaccination: < 5 Years Influenza Vaccination: No Past Surgical History Other Surgery: Yes (EAR SURG-WISDOM TEETH REMOVED-NASAL SURG-RIGHT HERNIA REPAIR) Social History Alcohol Use: No Tobacco Use: Yes Substance Use: No Allergies-Medications (Allergen,Severity, Reaction): Coded Allergies: No Known Allergies (Unverified , 08/18/17) Reported Meds & Prescriptions Reported Meds & Active Scripts Active Review of Systems Except as stated in HPI: all other systems reviewed are Neg General / Constitutional: Positive: Fever, Chills HENT: Positive: Headaches, Congestion Cardiovascular: No: Chest Pain or Discomfort Respiratory: Positive: Cough, No: Shortness of Breath Gastrointestinal: Positive: Diarrhea (x1), No: Nausea, Vomiting, Abdominal Pain Genitourinary: Positive: Frequency, Dysuria, Flank Pain Musculoskeletal: Positive: Myalgias, Arthralgias Skin: No Rash Neurologic: No: Weakness, Dizziness, Syncope Psychiatric: No: Anxiety Hematologic/Lymphatic: No: Lymph Node Enlargement Physical Exam Narrative GENERAL: Well-developed well-nourished male no acute distress no respiratory distress; febrile SKIN: Warm and dry. HEAD: Normocephalic. EYES: No scleral icterus. No injection or drainage. ENT: Mucous membranes moist airways patent posterior pharynx no redness induration or exudative change no white plaquing no angioedema. NECK: Supple, trachea midline. No JVD or lymphadenopathy. CARDIOVASCULAR: Increased regular rate and rhythm without murmurs, gallops, or rubs. RESPIRATORY: Breath sounds equal bilaterally. No accessory muscle use. GASTROINTESTINAL: Abdomen soft, non-tender, nondistended. MUSCULOSKELETAL: No cyanosis, or edema. BACK: Nontender without obvious deformity. No CVA tenderness. Data Data Last Documented VS Vital Signs Date Time Temp Pulse Resp B/P (MAP) Pulse Ox O2 Delivery O2 Flow Rate FiO2 08/18/17 05:40 98.4 78 18 109/54 (72) 95 Room Air Orders Orders Sepsis Workup Initiated (08/18/17 ) Complete Blood Count With Diff (08/18/17 03:12) Comprehensive Metabolic Panel (08/18/17 03:12) Lactic Acid Sepsis Protocol (08/18/17 03:12) Magnesium (Mg) (08/18/17 03:12) Lipase (08/18/17 03:12) Urinalysis - C+S If Indicated (08/18/17 03:12) Influenzae A/B Antigen (08/18/17 03:12) Blood Culture (08/18/17 03:12) Chest, Single Ap (08/18/17 03:12) Blood Glucose (08/18/17 03:12) Ecg Monitoring (08/18/17 03:12) Iv Access Insert/Monitor (08/18/17 03:12) Oximetry (08/18/17 03:12) Oxygen Administration (08/18/17 03:12) Acetaminophen (Tylenol) (08/18/17 03:15) Ibuprofen (Motrin) (08/18/17 03:15) Ondansetron Inj (Zofran Inj) (08/18/17 03:15) Sodium Chlor 0.9% 1000 Ml Inj (Ns 1000 M (08/18/17 03:12) Sodium Chlor 0.9% 1000 Ml Inj (Ns 1000 M (08/18/17 03:12) Sodium Chlor 0.9% 1000 Ml Inj (Ns 1000 M (08/18/17 03:12) Beta Hydroxybutyrate (Acetone) (08/18/17 03:12) Cefepime Inj (Maxipime Inj) (08/18/17 03:15) Vancomycin Inj (Vancomycin Inj) (08/18/17 03:15) Sodium Chlor 0.9% 1000 Ml Inj (Ns 1000 M (08/18/17 06:00) Urine Culture (08/18/17 05:51) Labs Laboratory Tests Test 08/18/17 03:30 08/18/17 03:40 08/18/17 05:51 White Blood Count 16.3 TH/MM3 Red Blood Count 5.26 MIL/MM3 Hemoglobin 15.4 GM/DL Hematocrit 43.8 % Mean Corpuscular Volume 83.3 FL Mean Corpuscular Hemoglobin 29.2 PG Mean Corpuscular Hemoglobin Concent 35.1 % Red Cell Distribution Width 13.3 % Platelet Count 157 TH/MM3 Mean Platelet Volume 8.1 FL Neutrophils (%) (Auto) 77.2 % Lymphocytes (%) (Auto) 14.0 % Monocytes (%) (Auto) 8.6 % Eosinophils (%) (Auto) 0.0 % Basophils (%) (Auto) 0.2 % Neutrophils # (Auto) 12.5 TH/MM3 Lymphocytes # (Auto) 2.3 TH/MM3 Monocytes # (Auto) 1.4 TH/MM3 Eosinophils # (Auto) 0.0 TH/MM3 Basophils # (Auto) 0.0 TH/MM3 CBC Comment DIFF FINAL Differential Comment Blood Urea Nitrogen 13 MG/DL Creatinine 1.28 MG/DL Random Glucose 101 MG/DL Total Protein 8.3 GM/DL Albumin 3.8 GM/DL Calcium Level 8.7 MG/DL Magnesium Level 1.7 MG/DL Alkaline Phosphatase 72 U/L Aspartate Amino Transf (AST/SGOT) 14 U/L Alanine Aminotransferase (ALT/SGPT) 18 U/L Total Bilirubin 1.4 MG/DL Sodium Level 137 MEQ/L Potassium Level 3.6 MEQ/L Chloride Level 100 MEQ/L Carbon Dioxide Level 29.8 MEQ/L Anion Gap 7 MEQ/L Estimat Glomerular Filtration Rate 61 ML/MIN Lipase 39 U/L B-Hydroxybutyrate 0.06 MMOL/L Lactic Acid Level 1.3 mmol/L Urine Color LIGHT-YELLOW Urine Turbidity CLEAR Urine pH 5.5 Urine Specific [place] 1.007 Urine Protein TRACE mg/dL Urine Glucose (UA) NEG mg/dL Urine Ketones NEG mg/dL Urine Occult Blood NEG Urine Nitrite NEG Urine Bilirubin NEG Urine Urobilinogen LESS THAN 2.0 MG/DL Urine Leukocyte Esterase LARGE Urine RBC 1 /hpf Urine WBC 42 /hpf Urine Squamous Epithelial Cells <1 /hpf Urine Transitional Epithelial Cells <1 /hpf Urine Bacteria RARE /hpf Microscopic Urinalysis Comment CATH-CULTURE IND MDM Medical Decision Making Medical Screen Exam Complete: Yes Emergency Medical Condition: Yes Medical Record Reviewed: Yes Interpretation(s) Lactic acid: 1.3, not elevated CBC & BMP Diagram 08/18/17 03:30 Total Protein 8.3 H, Albumin 3.8, Calcium Level 8.7, Magnesium Level 1.7, Alkaline Phosphatase 72, Aspartate Amino Transf (AST/SGOT) 14 L, Alanine Aminotransferase (ALT/SGPT) 18, Total Bilirubin 1.4 H Vital Signs Date Time Temp Pulse Resp B/P (MAP) Pulse Ox O2 Delivery O2 Flow Rate FiO2 08/18/17 05:40 98.4 78 18 109/54 (72) 95 Room Air 08/18/17 02:48 102.2 112 20 131/64 (86) 99 Room Air 08/18/17 00:23 102.4 108 18 114/60 (78) 96 Last Impressions Chest X-Ray 08/18/17 0312 Signed Impressions: Service Date/Time: Friday, August 18, 2017 03:18 - CONCLUSION: No evidence of acute cardiopulmonary disease. Daryl Kaur MD Influenza A/B antigen: Negative UA: White blood cells leukocyte esterase bacteria; culture indicated Differential Diagnosis Viral syndrome, influenza, pneumonia, sinusitis, UTI, pyelonephritis Narrative Course IV access obtained patient placed on athletic monitor with continuous pulse oximetry IV fluids administered along with antipyretics Patient resting comfortably has received IV antibiotics and has defervesced voicing no complaints at this time Urinalysis pending Cath specimen positive for white blood cells leukocyte esterase and bacteria culture indicated Sepsis Criteria SIRS Criteria (2 or more): Temp > 100.9 or < 96.8, Heart rate over 90, WBC > 50473, < 4000 or > 10% bands Sepsis Criteria (SIRS+source): Infect source susp/known Physician Communication Physician Communication discussed with [facility] service Diagnosis Primary Impression: UTI (urinary tract infection) Additional Impression: Sepsis Admitting Information Admitting Physician Requests: Observation Tran Bhagat MD Aug 18, 2017 04:29
[2017-08-18 04:30] LABS: ALBUMIN 3.8 GM/DL (3.4-5.0); AST (GOT) 14 U/L (15-37); BICARBONATE 29.8 MEQ/L (21.0-32.0); BLOOD UREA NITROGEN 13 MG/DL (7-18); CALCIUM 8.7 MG/DL (8.5-10.1); CHLORIDE 100 MEQ/L (98-107); CREATININE 1.28 MG/DL (0.60-1.30); GLOMERULAR FILTRATION RATE 61 ML/MIN (>89); GLUCOSE,RANDOM 101 MG/DL (74-106); MAGNESIUM 1.7 MG/DL (1.5-2.5); SODIUM (NA) 137 MEQ/L (136-145)
[2017-08-18 04:33] LABS: ALKALINE PHOSPHATASE 72 U/L (45-117); ALT (GPT) 18 U/L (12-78); TOTAL BILIRUBIN ADULT 1.4 MG/DL (0.2-1.0); TOTAL PROTEIN 8.3 GM/DL (6.4-8.2)
[2017-08-18 06:38] LABS: BACTERIA, URINE RARE /hpf; BILIRUBIN, URINE NEG (NEG); BLOOD, URINE NEG (NEG); GLUCOSE,URINE NEG (NEG); KETONE, URINE NEG (NEG); NITRITE,URINE NEG (NEG); PH, URINE 5.5 (5.0-8.5); SQUAMOUS EPITHELIAL CELL URINE <1 /hpf (0-5); TRANSITIONAL EPI CELLS, URINE <1 /hpf; URINE COLOR LIGHT-YELLOW (YELLW/STRAW); URINE LEUKOCYTE ESTERASE LARGE (NEG)
[2017-08-18] MEDS ORDERED: BISACODYL 10 MG SUPP RECTAL PRN (07:00)
[2017-08-18] MEDS ORDERED: SENNOSIDES 8.6 MG TAB PO PRN (07:00)
[2017-08-18] MEDS ORDERED: SODIUM CHLORIDE 0.9% FLUSH 10 ML FLUSH IV FLUSH PRN (07:00)
[2017-08-18] MEDS ORDERED: ONDANSETRON HCL 4 MG/2 ML VIAL IVP PRN (07:00)
[2017-08-18] MEDS ORDERED: NALOXONE HCL 0.4 MG/ML AMP IV PUSH PRN (07:00)
[2017-08-18] MEDS ORDERED: MAGNESIUM HYDROXIDE SUSP 30 ML CUP PO PRN (07:00)
[2017-08-18] MEDS ORDERED: LACTULOSE SYRUP 20 GM/30 ML CUP PO PRN (07:00)
[2017-08-18] MEDS ORDERED: cefTRIAXone INJ 1,000 MG in SODIUM CHLORIDE 0.9% INJ 100 ML IV SCH (08:00)
[2017-08-18] MEDS: SODIUM CHLOR 0.9% 1000 ML INJ 1,000 ML IV SCH ×2 (08:49→16:35)
[2017-08-18] MEDS: SODIUM CHLORIDE 0.9% FLUSH 10 ML FLUSH IV FLUSH SCH ×2 (09:00→21:20)
[2017-08-18] MEDS ORDERED: DOCUSATE SODIUM 50 MG/SENNA 8.6 MG TAB PO SCH (09:00)
--- NOTE | 2017-08-18 10:07 | HHI.HP ---
[facility] [place] [facility] No Primary Care Physician Admission Diagnosis uti; sepsis Diagnoses: (1) Sepsis (2) UTI (urinary tract infection) Chief Complaint: Urinary frequency and dysuria Travel History International Travel<30 Days: No Contact w/Intl Traveler <30 Da: No Traveled to Known Affected Are: No Sepsis Criteria SIRS Criteria (2 or more): Temp > 100.9 or < 96.8, WBC > 92152, < 4000 or > 10 % bands Sepsis Criteria (SIRS+source): Infect source susp/known Criteria Outcome: Meets sepsis criteria History of Present Illness 42-year-old male for past medical history of HIV and noncompliant with medical care presented to the ED early this morning for evaluation of acute onset of urinary frequency, dysuria, arthralgia as well as myalgia along with subjective fever. Patient was found to have elevated WBC with a temperature of 102.4 on presentation. Denies any penile discharge. He also denies any chest pain or shortness of breath as well as pelvic pressure. He has been noncompliant with HAART since 2012. Patient is currently homeless Review of Systems Except as stated in HPI: all other systems reviewed are Neg Past Family Social History Past Medical History HIV Diabetes Prior history of syphilis Past Surgical History EAR SURG-WISDOM TEETH REMOVED-NASAL SURG-RIGHT HERNIA REPAIR Reported Medications Not currently on any medication Allergies: Coded Allergies: No Known Allergies (Unverified , 08/18/17) Family History Denies any family history of heart disease, diabetes Social History Alcohol Use: No Tobacco Use: Yes half a pack per day Substance Use: No He is currently homeless Physical Exam Vital Signs Vital Signs Date Time Temp Pulse Resp B/P (MAP) Pulse Ox O2 Delivery O2 Flow Rate FiO2 08/18/17 05:40 98.4 78 18 109/54 (72) 95 Room Air 08/18/17 02:48 102.2 112 20 131/64 (86) 99 Room Air 08/18/17 00:23 102.4 108 18 114/60 (78) 96 Physical Exam GENERAL: This is a well-nourished, well-developed patient, in no apparent distress. SKIN: No rashes, ecchymoses or lesions. Cool and dry. HEAD: Atraumatic. Normocephalic. No temporal or scalp tenderness. EYES: Pupils equal round and reactive. Extraocular motions intact. No scleral icterus. No injection or drainage. ENT: Nose without bleeding, purulent drainage or septal hematoma. Throat without erythema, tonsillar hypertrophy or exudate. Uvula midline. Airway patent. NECK: Trachea midline. No JVD or lymphadenopathy. Supple, nontender, no meningeal signs. CARDIOVASCULAR: Regular rate and rhythm without murmurs, gallops, or rubs. RESPIRATORY: Clear to auscultation. Breath sounds equal bilaterally. No wheezes , rales, or rhonchi. GASTROINTESTINAL: Abdomen soft, non-tender, nondistended. No hepato-splenomegaly , or palpable masses. No guarding. MUSCULOSKELETAL: Extremities without clubbing, cyanosis, or edema. No joint tenderness, effusion, or edema noted. No calf tenderness. Negative Homans sign bilaterally. NEUROLOGICAL: Awake and alert. Cranial nerves II through XII intact. Motor and sensory grossly within normal limits. Five out of 5 muscle strength in all muscle groups. Normal speech. Laboratory Laboratory Tests Test 08/18/17 03:30 08/18/17 03:40 08/18/17 05:51 White Blood Count 16.3 Red Blood Count 5.26 Hemoglobin 15.4 Hematocrit 43.8 Mean Corpuscular Volume 83.3 Mean Corpuscular Hemoglobin 29.2 Mean Corpuscular Hemoglobin Concent 35.1 Red Cell Distribution Width 13.3 Platelet Count 157 Mean Platelet Volume 8.1 Neutrophils (%) (Auto) 77.2 Lymphocytes (%) (Auto) 14.0 Monocytes (%) (Auto) 8.6 Eosinophils (%) (Auto) 0.0 Basophils (%) (Auto) 0.2 Neutrophils # (Auto) 12.5 Lymphocytes # (Auto) 2.3 Monocytes # (Auto) 1.4 Eosinophils # (Auto) 0.0 Basophils # (Auto) 0.0 CBC Comment DIFF FINAL Differential Comment Blood Urea Nitrogen 13 Creatinine 1.28 Random Glucose 101 Total Protein 8.3 Albumin 3.8 Calcium Level 8.7 Magnesium Level 1.7 Alkaline Phosphatase 72 Aspartate Amino Transf (AST/SGOT) 14 Alanine Aminotransferase (ALT/SGPT) 18 Total Bilirubin 1.4 Sodium Level 137 Potassium Level 3.6 Chloride Level 100 Carbon Dioxide Level 29.8 Anion Gap 7 Estimat Glomerular Filtration Rate 61 Lipase 39 B-Hydroxybutyrate 0.06 Lactic Acid Level 1.3 Urine Color LIGHT-YELLOW Urine Turbidity CLEAR Urine pH 5.5 Urine Specific [place] 1.007 Urine Protein TRACE Urine Glucose (UA) NEG Urine Ketones NEG Urine Occult Blood NEG Urine Nitrite NEG Urine Bilirubin NEG Urine Urobilinogen LESS THAN 2.0 Urine Leukocyte Esterase LARGE Urine RBC 1 Urine WBC 42 Urine Squamous Epithelial Cells <1 Urine Transitional Epithelial Cells <1 Urine Bacteria RARE Microscopic Urinalysis Comment CATH-CULTURE IND Date/Time Source Procedure Growth Status 08/18/17 03:45 Blood Peripheral Aerobic Blood Culture Pending Received 08/18/17 03:45 Blood Peripheral Anaerobic Blood Culture Pending Received 08/18/17 03:45 Nasal Washing Influenza Types A,B Antigen (LIZ) - Final NEGATIVE FOR FLU A AND B ANTIGEN.... Complete 08/18/17 05:51 Urine Catheterized Urine Urine Culture Pending Received Result Diagram: 08/18/17 0330 08/18/17 0330 Imaging Last Impressions Chest X-Ray 08/18/17 0312 Signed Impressions: Service Date/Time: Friday, August 18, 2017 03:18 - CONCLUSION: No evidence of acute cardiopulmonary disease. Daryl Kaur MD Septic Shock Reassessment Septic shock perfusion: reassessment completed Caprini VTE Risk Assessment Caprini VTE Risk Assessment: No/Low Risk (score <= 1) Caprini Risk Assessment Model Point Value = 1 Point Value = 2 Point Value = 3 Point Value = 5 Age 41-60 Minor surgery BMI > 25 kg/m2 Swollen legs Varicose veins or History of unexplained or recurrent spontaneous Oral contraceptives or hormone replacement Sepsis (< 1 month) Serious lung disease, including pneumonia (< 1 month) Abnormal pulmonary function Acute myocardial infarction Congestive heart failure (< 1 month) History of inflammatory bowel disease Medical patient at bed rest Age 61-74 Arthroscopic surgery Major open surgery (> 45 min) Laparoscopic surgery (> 45 min) Malignancy Confined to bed (> 72 hours) Immobilizing plaster cast Central venous access Age >= 75 History of VTE Family history of VTE Factor V Leiden Prothrombin [id number] Lupus anticoagulant Anticardiolipin antibodies Elevated serum homocysteine Heparin-induced thrombocytopenia Other congenital or acquired thrombophilia Stroke (< 1 month) Elective arthroplasty Hip, pelvis, or leg fracture Acute spinal cord injury (< 1 month) Prophylaxis Regimen Total Risk Factor Score Risk Level Prophylaxis Regimen 0-1 Low Early ambulation 2 Moderate Order ONE of the following: *Sequential Compression Device (SCD) *Heparin 5000 units SQ BID 3-4 Higher Order ONE of the following medications: *Heparin 5000 units SQ TID *Enoxaparin/Lovenox 40 mg SQ daily (WT < 150 kg, CrCl > 30 mL/min) *Enoxaparin/Lovenox 30 mg SQ daily (WT < 150 kg, CrCl > 10-29 mL/min) *Enoxaparin/Lovenox 30 mg SQ BID (WT < 150 kg, CrCl > 30 mL/min) AND/OR *Sequential Compression Device (SCD) 5 or more Highest Order ONE of the following medications: *Heparin 5000 units SQ TID (Preferred with Epidurals) *Enoxaparin/Lovenox 40 mg SQ daily (WT < 150 kg, CrCl > 30 mL/min) *Enoxaparin/Lovenox 30 mg SQ daily (WT < 150 kg, CrCl > 10-29 mL/min) *Enoxaparin/Lovenox 30 mg SQ BID (WT < 150 kg, CrCl > 30 mL/min) AND *Sequential Compression Device (SCD) Assessment and Plan Problem List: (1) Sepsis ICD Code: A41.9 - Sepsis, unspecified organism Status: Acute (2) UTI (urinary tract infection) ICD Code: N39.0 - Urinary tract infection, site not specified Status: Acute Assessment and Plan 42-year-old male with Sepsis Criteria (SIRS+source): Temp > 100.9 or < 96.8, Heart rate over 90, WBC > 43309, < 4000 or > 10% bands; Lactic acid wnl; Infect source susp/known (UTI) Status post cefepime, Rocephin, and vancomycin IV 1 in ED, will continue with cefepime 2 g IV every 8 hour pending culture reports UTI Currently on cefepime IV 2 g q. 8 pending urine culture report HIV Noncompliance with medical care Infectious disease specialist consultation pending for assistance Tobacco abuse Tobacco counseling cessation provided Start Nicotine patch daily DVT prophylaxis:Low risk for VTE Code Status Full code Discussed Condition With Patient Physician Certification 2 Midnight Certification Type: Admission for Inpatient Services Order for Inpatient Services The services are ordered in accordance with Medicare regulations or non- Medicare payer requirements, as applicable. In the case of services not specified as inpatient-only, they are appropriately provided as inpatient services in accordance with the 2-midnight benchmark. Estimated LOS (days): 2 days is the estimated time the patient will need to remain in the hospital, assuming treatment plan goals are met and no additional complications. Post-Hospital Plan: Not yet determined Abraham Arroyo MD Aug 18, 2017 10:07
[2017-08-18] MEDS: REMOVE OLD PATCH T-DERMAL SCH (11:52)
[2017-08-18] MEDS: CEFEPIME INJ 2,000 MG in SODIUM CHLORIDE 0.9% INJ 100 ML IV SCH ×2 (13:01→21:20)
[2017-08-18] MEDS: NICOTINE 14 MG/24 HR PATCH T-DERMAL SCH (13:02)
--- NOTE | 2017-08-18 14:16 | PD.ID.CON ---
History of Present Illness Service Infectious disease Consult Requested By Medicine service Reason for Consult HIV patient with urosepsis Primary Care Physician No Primary Care Physician Diagnoses: History of Present Illness Patient seen and examined with Dr. Torres This is a 42yo male with a PMHX of HIV who is not on any antiretroviral medications and has not followed with ID in over a year and a half who presents to [facility] ED with complaints of fever, chills, malaise, dysuria and diarrhea x 1 day. Patient does not know what his CD4 count is but does know at one point it was below 200. He has had thrush before which is how he found out he was HIV positive. He has a previous history of syphilis and states he has been treated. He is homeless and lives in the [facility] in a tent. He is not able to cook food and eats food given to him at grocery stores and restaurants. He denies any chest pain or shortness of breath. He denies any nausea, vomiting of abdominal pain. Patient is sexually active with both men and women and states his last sexual encounter was several months ago. He denies any penile discharge. Infectious disease has been consulted for evaluation and management of urosepsis. Patient had a Tmax of 102.4 and leukocytosis of 16.3. Lactic acid 1.3. CXR was unremarkable. Urinalysis strongly suggestive of UTI and patient has been started on IV Cefepime. Blood culture is pending. (Aileen Allen) Review of Systems Except as stated in HPI: all other systems reviewed are Neg (Aileen Allen) Past Family Social History Allergies: Coded Allergies: No Known Allergies (Unverified , 08/18/17) Past Medical History HIV, medication noncompliance Lost to follow up, unknown CD4 count Diabetes Hx of syphilis, treated Past Surgical History Ear surgery Eva teeth extraction Nasal surgery Right hernia repair Reported Medications Patient denies taking any medications at home Active Ordered Medications Current Medications Medications (Trade) Dose Ordered Sig/Sonia Route Start Time Stop Time Status Last Admin Sodium Chloride 1,000 ml @ 100 mls/hr Q10H IV 08/18/17 06:57 08/18/17 08:49 (NS Flush) 2 ml UNSCH PRN IV FLUSH 08/18/17 07:00 (NS Flush) 2 ml BID IV FLUSH 08/18/17 09:00 (Tylenol) 650 mg Q4H PRN PO 08/18/17 07:00 (Zofran Inj) 4 mg Q6H PRN IVP 08/18/17 07:00 (Narcan Inj) 0.4 mg UNSCH PRN IV PUSH 08/18/17 07:00 (Milk Of Magnkellie Liq) 30 ml Q12H PRN PO 08/18/17 07:00 (Senokot) 17.2 mg Q12H PRN PO 08/18/17 07:00 Cefepime HCl 2000 mg/Sodium Chloride 100 ml @ 200 mls/hr Q8H IV 08/18/17 13:00 08/18/17 13:01 (Habitrol 14 Mg Patch.24 Hr) 1 patch DAILY T-DERMAL 08/18/17 12:00 08/18/17 13:02 Miscellaneous Information 1 DAILY T-DERMAL 08/18/17 12:00 Family History Reviewed with patient, noncontributory Social History Patient denies any EtOH consumption or illicit drug use. Patient admits to tobacco use. He is homeless and lives in the [facility] Physical Exam Vital Signs Vital Signs Date Time Temp Pulse Resp B/P (MAP) Pulse Ox O2 Delivery O2 Flow Rate FiO2 08/18/17 13:05 99.0 98 13 114/61 (78) 98 Room Air 08/18/17 05:40 98.4 78 18 109/54 (72) 95 Room Air 08/18/17 02:48 102.2 112 20 131/64 (86) 99 Room Air 08/18/17 00:23 102.4 108 18 114/60 (78) 96 Physical Exam GENERAL: This is a well-nourished, well-developed male patient, in no apparent distress. Awake and alert. SKIN: No rashes, ecchymoses or lesions. Cool and dry. HEAD: Atraumatic. Normocephalic. No temporal or scalp tenderness. EYES: Pupils equal round and reactive. Extraocular motions intact. No scleral icterus. No injection or drainage. ENT: Nose without bleeding, purulent drainage or septal hematoma. Throat without erythema, tonsillar hypertrophy or exudate. Uvula midline. Airway patent. NECK: Trachea midline. No JVD. (+)Left sided cervical lymphadenopathy. Supple, nontender, no meningeal signs. CARDIOVASCULAR: Tachycardic without murmurs, gallops, or rubs. RESPIRATORY: Diminished, few scattered coarse breath sounds. Nonlabored. GASTROINTESTINAL: Abdomen soft, non-tender, nondistended. No hepato-splenomegaly , or palpable masses. No guarding. MUSCULOSKELETAL: Extremities without clubbing, cyanosis, or edema. No joint tenderness, effusion, or edema noted. No calf tenderness. NEUROLOGICAL: Awake and alert. Cranial nerves II through XII intact. Motor and sensory grossly within normal limits. No focal neurologic finding appreciated. Normal speech. Laboratory Laboratory Tests Test 08/18/17 03:30 08/18/17 03:40 08/18/17 05:51 White Blood Count 16.3 Red Blood Count 5.26 Hemoglobin 15.4 Hematocrit 43.8 Mean Corpuscular Volume 83.3 Mean Corpuscular Hemoglobin 29.2 Mean Corpuscular Hemoglobin Concent 35.1 Red Cell Distribution Width 13.3 Platelet Count 157 Mean Platelet Volume 8.1 Neutrophils (%) (Auto) 77.2 Lymphocytes (%) (Auto) 14.0 Monocytes (%) (Auto) 8.6 Eosinophils (%) (Auto) 0.0 Basophils (%) (Auto) 0.2 Neutrophils # (Auto) 12.5 Lymphocytes # (Auto) 2.3 Monocytes # (Auto) 1.4 Eosinophils # (Auto) 0.0 Basophils # (Auto) 0.0 CBC Comment DIFF FINAL Differential Comment Blood Urea Nitrogen 13 Creatinine 1.28 Random Glucose 101 Total Protein 8.3 Albumin 3.8 Calcium Level 8.7 Magnesium Level 1.7 Alkaline Phosphatase 72 Aspartate Amino Transf (AST/SGOT) 14 Alanine Aminotransferase (ALT/SGPT) 18 Total Bilirubin 1.4 Sodium Level 137 Potassium Level 3.6 Chloride Level 100 Carbon Dioxide Level 29.8 Anion Gap 7 Estimat Glomerular Filtration Rate 61 Lipase 39 B-Hydroxybutyrate 0.06 Lactic Acid Level 1.3 Urine Color LIGHT-YELLOW Urine Turbidity CLEAR Urine pH 5.5 Urine Specific [place] 1.007 Urine Protein TRACE Urine Glucose (UA) NEG Urine Ketones NEG Urine Occult Blood NEG Urine Nitrite NEG Urine Bilirubin NEG Urine Urobilinogen LESS THAN 2.0 Urine Leukocyte Esterase LARGE Urine RBC 1 Urine WBC 42 Urine Squamous Epithelial Cells <1 Urine Transitional Epithelial Cells <1 Urine Bacteria RARE Microscopic Urinalysis Comment CATH-CULTURE IND Date/Time Source Procedure Growth Status 08/18/17 03:45 Blood Peripheral Aerobic Blood Culture Pending Received 08/18/17 03:45 Blood Peripheral Anaerobic Blood Culture Pending Received 08/18/17 03:45 Nasal Washing Influenza Types A,B Antigen (LIZ) - Final NEGATIVE FOR FLU A AND B ANTIGEN.... Complete 08/18/17 05:51 Urine Catheterized Urine Urine Culture Pending Received (Aileen Allen) Result Diagram: 08/18/17 0330 08/18/17 0330 Imaging Last Impressions Chest X-Ray 08/18/17311 Signed Impressions: Service Date/Time: Wednesday, August 18, 2017 03:18 - CONCLUSION: No evidence of acute cardiopulmonary disease. Daryl Kaur MD (Aileen Allen) Assessment and Plan Assessment and Plan Sepsis with fever 102.4, leukocytosis with white count 16.3 and suspected source of urosepsis -on IV Cefepime -UCX pending -BCX with no growth to date Diarrhea HIV, medication noncompliant, lost to follow up RECOMMENDATIONS: Continue on IV Cefepime Follow fevers and white count Follow up on blood culture results Follow-up on final urine culture results Obtain AFB and fungal blood cultures Obtain HIV, RPR CD4 count, viral load, hepatitis profile and GC/chlamydia Send stool specimen for stool studies and C. difficile Obtain urine drug screen Continue to monitor clinically Further recommendations to follow (Aileen Allen) Assessment and Plan The exam, history, and the medical decision-making described in the above note were completed with the assistance of the mid-level provider. I reviewed and agree with the findings presented. I attest that I had a [id number] encounter with the patient on the same day, and personally performed and documented my assessment and findings in the medical record. Sepsis in an HIV patient with diarrhea other cultures still pending. Diarrhea present on admission: Rule out infectious causes of diarrhea as well as C. difficile. CD4 count not known Noncompliant with visits as well as medications Homelessness Physical examination poorly kempt Lymphadenopathy cervical chain appreciated No oral thrush Cooperative Recommendations Continue cefepime IV Follow cultures Follow clinically Stool studies Stool C. difficile PCR AFB blood culture Fungus blood culture Regular blood cultures as well (Catia Torres MD) Aileen Allen Aug 18, 2017 14:16 Catia Torres MD Aug 18, 2017 17:32
[2017-08-18] MEDS: ACETAMINOPHEN 325 MG TAB PO PRN (21:20)
[2017-08-19 00:45] VITALS: BP 130/67; PULSE 89; RESP 18; TEMP 99; O2SAT 98
[2017-08-19 04:20] VITALS: BP 120/63; PULSE 88; RESP 17; TEMP 98; O2SAT 99
[2017-08-19] MEDS: CEFEPIME INJ 2,000 MG in SODIUM CHLORIDE 0.9% INJ 100 ML IV SCH ×2 (05:07→12:04)
[2017-08-19] MEDS: SODIUM CHLOR 0.9% 1000 ML INJ 1,000 ML IV SCH ×2 (05:07→12:04)
[2017-08-19] MEDS: ACETAMINOPHEN 325 MG TAB PO PRN (05:08)
[2017-08-19 08:00] VITALS: BP 129/66; PULSE 76; PULSE 78; RESP 18; TEMP 98.7; O2SAT 97
[2017-08-19] MEDS: NICOTINE 14 MG/24 HR PATCH T-DERMAL SCH (08:28)
[2017-08-19] MEDS: SODIUM CHLORIDE 0.9% FLUSH 10 ML FLUSH IV FLUSH SCH (08:28)
[2017-08-19] MEDS: REMOVE OLD PATCH T-DERMAL SCH (08:28)
[2017-08-19 10:19] LABS: RAPID PLASMA REAGIN TITER 1:32 (NON-REACTVE); RPR SCREEN FOR REFLEX REACTIVE (NON-REACTVE)
--- NOTE | 2017-08-19 11:42 | HHI.IDPN ---
Subjective Subjective Remarks Patient seen and examined with Dr. Torres This is a 42yo male with a PMHX of HIV who is not on any antiretroviral medications and has not followed with ID in over a year and a half who presents to [facility] ED with complaints of fever, chills, malaise, dysuria and diarrhea x 1 day. Patient does not know what his CD4 count is but does know at one point it was below 200. He has had thrush before which is how he found out he was HIV positive. He has a previous history of syphilis and states he has been treated. He is homeless and lives in the [facility] in a tent. He is not able to cook food and eats food given to him at grocery stores and restaurants. He denies any chest pain or shortness of breath. He denies any nausea, vomiting of abdominal pain. Patient is sexually active with both men and women and states his last sexual encounter was several months ago. He denies any penile discharge. Infectious disease has been consulted for evaluation and management of urosepsis. Patient had a Tmax of 102.4 and leukocytosis of 16.3. Lactic acid 1.3. CXR was unremarkable. Urinalysis strongly suggestive of UTI and patient has been started on IV Cefepime. Blood culture is pending. Notes reviewed patient reports night sweats but states fevers are better c/o generalized muscle and joint aches but reports some improvement he complains of painful itchy buttock rash that bleeds. States was treated with antifungal in the past with resolution but ran out of meds several mos ago and has now returned denies any generalized rash reports SOB which he states is chronic from smoking denies any N/V denies any dysuria denies any diarrhea last night or this morning Tmax 100.5 last night, afebrile today Repeat white count pending BCX with no growth x 1 day Cdiff neg, stool studies pending Hepatitis nonreactive FTA-ABS pending CD4 count and viral load pending Antibiotics IV Cefepime Current Medications Medications (Trade) Dose Ordered Sig/Sonia Route Start Time Stop Time Status Last Admin Sodium Chloride 1,000 ml @ 100 mls/hr Q10H IV 08/18/17 06:57 08/19/17 05:07 (NS Flush) 2 ml UNSCH PRN IV FLUSH 08/18/17 07:00 (NS Flush) 2 ml BID IV FLUSH 08/18/17 09:00 08/19/17 08:28 (Tylenol) 650 mg Q4H PRN PO 08/18/17 07:00 08/19/17 05:08 (Zofran Inj) 4 mg Q6H PRN IVP 08/18/17 07:00 (Narcan Inj) 0.4 mg UNSCH PRN IV PUSH 08/18/17 07:00 (Milk Of [place] Liq) 30 ml Q12H PRN PO 08/18/17 07:00 (Senokot) 17.2 mg Q12H PRN PO 08/18/17 07:00 Cefepime HCl 2000 mg/Sodium Chloride 100 ml @ 200 mls/hr Q8H IV 08/18/17 13:00 08/19/17 05:07 (Habitrol 14 Mg Patch.24 Hr) 1 patch DAILY T-DERMAL 08/18/17 12:00 08/19/17 08:28 Miscellaneous Information 1 DAILY T-DERMAL 08/18/17 12:00 08/19/17 08:28 Lines PIV line with no e/o infection Past Medical History HIV, medication noncompliance Lost to follow up, unknown CD4 count Diabetes Hx of syphilis, treated Allergies: Coded Allergies: No Known Allergies (Unverified , 08/18/17) Objective . Vital Signs Date Time Temp Pulse Resp B/P (MAP) Pulse Ox O2 Delivery O2 Flow Rate FiO2 08/19/17 08:00 98.7 78 18 129/66 (87) 97 08/19/17 08:00 76 08/19/17 04:20 98.0 88 17 120/63 (82) 99 08/19/17 00:45 99.0 89 18 130/67 (88) 98 08/18/17 23:00 89 08/18/17 21:20 100.5 93 19 133/75 (94) 99 08/18/17 15:33 98.3 93 18 102/60 (74) 100 08/18/17 13:05 99.0 98 13 114/61 (78) 98 Room Air . Laboratory Tests Test 08/18/17 03:30 08/18/17 03:40 08/18/17 05:51 08/18/17 05:57 White Blood Count 16.3 TH/MM3 Red Blood Count 5.26 MIL/MM3 Hemoglobin 15.4 GM/DL Hematocrit 43.8 % Mean Corpuscular Volume 83.3 FL Mean Corpuscular Hemoglobin 29.2 PG Mean Corpuscular Hemoglobin Concent 35.1 % Red Cell Distribution Width 13.3 % Platelet Count 157 TH/MM3 Mean Platelet Volume 8.1 FL Neutrophils (%) (Auto) 77.2 % Lymphocytes (%) (Auto) 14.0 % Monocytes (%) (Auto) 8.6 % Eosinophils (%) (Auto) 0.0 % Basophils (%) (Auto) 0.2 % Neutrophils # (Auto) 12.5 TH/MM3 Lymphocytes # (Auto) 2.3 TH/MM3 Monocytes # (Auto) 1.4 TH/MM3 Eosinophils # (Auto) 0.0 TH/MM3 Basophils # (Auto) 0.0 TH/MM3 CBC Comment DIFF FINAL Differential Comment Blood Urea Nitrogen 13 MG/DL Creatinine 1.28 MG/DL Random Glucose 101 MG/DL Total Protein 8.3 GM/DL Albumin 3.8 GM/DL Calcium Level 8.7 MG/DL Magnesium Level 1.7 MG/DL Alkaline Phosphatase 72 U/L Aspartate Amino Transf (AST/SGOT) 14 U/L Alanine Aminotransferase (ALT/SGPT) 18 U/L Total Bilirubin 1.4 MG/DL Sodium Level 137 MEQ/L Potassium Level 3.6 MEQ/L Chloride Level 100 MEQ/L Carbon Dioxide Level 29.8 MEQ/L Anion Gap 7 MEQ/L Estimat Glomerular Filtration Rate 61 ML/MIN Lipase 39 U/L B-Hydroxybutyrate 0.06 MMOL/L Lactic Acid Level 1.3 mmol/L Urine Color LIGHT-YELLOW Urine Turbidity CLEAR Urine pH 5.5 Urine Specific [place] 1.007 Urine Protein TRACE mg/dL Urine Glucose (UA) NEG mg/dL Urine Ketones NEG mg/dL Urine Occult Blood NEG Urine Nitrite NEG Urine Bilirubin NEG Urine Urobilinogen LESS THAN 2.0 MG/DL Urine Leukocyte Esterase LARGE Urine RBC 1 /hpf Urine WBC 42 /hpf Urine Squamous Epithelial Cells <1 /hpf Urine Transitional Epithelial Cells <1 /hpf Urine Bacteria RARE /hpf Microscopic Urinalysis Comment CATH-CULTURE IND Urine Opiates Screen NEG Urine Barbiturates Screen NEG Urine Amphetamines Screen POS Urine Benzodiazepines Screen NEG Urine Cocaine Screen NEG Urine Cannabinoids Screen NEG Chlamydia trachomatis DNA (PCR) NOT DETECTED Neisseria gonorrhoeae DNA (PCR) NOT DETECTED Test 08/18/17 15:23 08/18/17 21:30 08/19/17 08:24 Rapid Plasma Reagin Titer 1:32 Rapid Plasma Reagin REACTIVE Hepatitis A IgM Antibody NONREACTIVE Hepatitis B Surface Antigen NONREACTIVE Hepatitis B Core IgM Antibody NONREACTIVE Hepatitis C IgG Antibody NONREACTIVE Eosinophil Stool Smear NONE SEEN /HPF Stool C. difficile Toxin (PCR) NEGATIVE Stl C. difficile Toxin Epiderm 027 PRESUMPTIVE NEGATIVE Imaging Last Impressions Chest X-Ray 08/18/17 0312 Signed Impressions: Service Date/Time: Friday, August 18, 2017 03:18 - CONCLUSION: No evidence of acute cardiopulmonary disease. Daryl Kaur MD Physical Exam GENERAL: This is a well-nourished, well-developed male patient, in no apparent distress. Awake and alert. Lying in hospital bed. SKIN: Warm and dry. (+)rash on bilateral buttock cheeks with excoriation and active bleeding noted HEAD: Atraumatic. Normocephalic. No temporal or scalp tenderness. EYES: Pupils equal round and reactive. Extraocular motions intact. No scleral icterus. No injection or drainage. ENT: Nose without bleeding or purulent drainage. Throat without erythema, tonsillar hypertrophy or exudate. Uvula midline. Airway patent. No oral thrush. NECK: Trachea midline. (+)Left sided cervical lymphadenopathy. Supple, nontender, no meningeal signs. CARDIOVASCULAR: Regular rate and rhythm without murmurs, gallops, or rubs. RESPIRATORY: Nonlabored. Clear to auscultation bilaterally. GASTROINTESTINAL: Abdomen soft, non-tender, nondistended. (+)BS MUSCULOSKELETAL: Extremities without clubbing, cyanosis, or edema. No calf tenderness. NEUROLOGICAL: Awake and alert. Cranial nerves II through XII grossly intact. Motor and sensory grossly within normal limits. No focal neurologic finding appreciated. Normal speech. PSYCHIATRIC: Calm and pleasant, cooperative PIV line with no e/o infection Assessment & Plan Remarks Sepsis in patient with HIV with fever 102.4, leukocytosis with white count 16.3 and suspected source of urosepsis, improving -on IV Cefepime -UCX pending -BCX with no growth to date Diarrhea, r/o infectious cause -improved, none last night or today -C diff negative -stool studies pending HIV, medication noncompliant, lost to follow up -CD4 count and viral load pending -FTA-ABS pending -hepatitis nonreactive Buttock rash ?scabies Substance abuse -UDS positive for amphetamines Homelessness RECOMMENDATIONS: Continue on IV Cefepime Continue to follow fevers White count pending, continue to follow BCX neg to date, continue to follow Follow-up on final urine culture results AFB and fungal blood cultures pending, continue to follow F/U on FTA-ABS, CD4 count, viral load final results. GC/Chlamydia pending. F/U on final stool study results Continue to monitor clinically Further recommendations to follow Aileen Allen Aug 19, 2017 11:42
[2017-08-19 12:00] VITALS: BP 129/63; PULSE 89; RESP 18; TEMP 98.5; O2SAT 97
[2017-08-19 12:03] LABS: BASOPHIL % 0.4 % (0.0-2.0); EOSINOPHIL # 0.1 TH/MM3 (0-0.4); EOSINOPHIL % 1.9 % (0.0-4.0); HEMATOCRIT 34.5 % (39.0-51.0); HEMOGLOBIN 12.2 GM/DL (13.0-17.0); LYMPH % 22.1 % (9.0-44.0); MEAN CELL VOLUME 82.9 FL (80.0-100.0); MEAN CORPUSCULAR HEMOGLOBIN 29.3 PG (27.0-34.0); MEAN CORPUSCULAR HGB CONC 35.3 % (32.0-36.0); MEAN PLATELET VOLUME 9.7 FL (7.0-11.0); MONO % 8.6 % (0.0-8.0); MONOCYTE # 0.4 TH/MM3 (0-0.9); RED BLOOD COUNT 4.16 MIL/MM3 (4.50-5.90); RED CELL DISTRIBUTION WIDTH 13.2 % (11.6-17.2); WHITE BLOOD COUNT 4.5 TH/MM3 (4.0-11.0)
[2017-08-19 12:18] LABS: PLATELET COUNT 13 TH/MM3 (150-450)
[2017-08-19 12:43] LABS: BICARBONATE 26.7 MEQ/L (21.0-32.0); CALCIUM 8.6 MG/DL (8.5-10.1); CREATININE 0.86 MG/DL (0.60-1.30)
[2017-08-19] MEDS ORDERED: KETOROLAC TROMETHAMINE 10 MG TAB PO PRN (13:00)
--- NOTE | 2017-08-19 13:02 | HHI.PR ---
Subjective Remarks Follow-up for HIV, sepsis due to possible UTI. Patient is currently resting in bed. He requests medications for his restlessness syndrome. He also requests some Toradol for pain. Objective Vitals Vital Signs Date Time Temp Pulse Resp B/P (MAP) Pulse Ox O2 Delivery O2 Flow Rate FiO2 08/19/17 12:00 98.5 89 18 129/63 (85) 97 08/19/17 08:00 98.7 78 18 129/66 (87) 97 08/19/17 08:00 76 08/19/17 04:20 98.0 88 17 120/63 (82) 99 08/19/17 00:45 99.0 89 18 130/67 (88) 98 08/18/17 23:00 89 08/18/17 21:20 100.5 93 19 133/75 (94) 99 08/18/17 15:33 98.3 93 18 102/60 (74) 100 08/18/17 13:05 99.0 98 13 114/61 (78) 98 Room Air I/O 08/18/17 08/18/17 08/18/17 08/19/17 08/19/17 08/19/17 07:00 15:00 23:00 07:00 15:00 23:00 Intake Total 2750 ml 100 ml 1000 ml 700 ml Output Total 500 ml 1000 ml Balance 2750 ml 100 ml 500 ml -300 ml Intake Oral 1000 ml 700 ml IV Total 2750 ml 100 ml Output Urine Total 500 ml 1000 ml # Bowel Movements 1 0 Result Diagram: 08/19/17 1150 08/19/17 1150 Imaging Last Impressions Chest X-Ray 08/18/17 0312 Signed Impressions: Service Date/Time: Friday, August 18, 2017 03:18 - CONCLUSION: No evidence of acute cardiopulmonary disease. Daryl Kaur MD Objective Remarks GENERAL: Alert, NAD. SKIN: Warm and dry. HEAD: Normocephalic. EYES: No scleral icterus. No injection or drainage. NECK: Supple, trachea midline. No JVD or lymphadenopathy. CARDIOVASCULAR: Regular rate and rhythm without murmurs, gallops, or rubs. RESPIRATORY: Breath sounds equal bilaterally. No accessory muscle use. GASTROINTESTINAL: Abdomen soft, non-tender, nondistended. MUSCULOSKELETAL: No cyanosis, or edema. BACK: Nontender without obvious deformity. No CVA tenderness. Procedures None A/P Problem List: (1) Sepsis ICD Code: A41.9 - Sepsis, unspecified organism Status: Acute (2) UTI (urinary tract infection) ICD Code: N39.0 - Urinary tract infection, site not specified Status: Acute (3) Thrombocytopenia ICD Code: D69.6 - Thrombocytopenia, unspecified (4) HIV (human immunodeficiency virus infection) ICD Code: B20 - Human immunodeficiency virus [HIV] disease Assessment and Plan Patient is a 42-year-old male for past medical history of HIV and noncompliant with medical care presented to the ED on 08/18/2017 for evaluation of acute onset of urinary frequency, dysuria, arthralgia as well as myalgia along with subjective fever. He had fever upon arrival and met sepsis criteria. ID was consulted. Sepsis (fever 102.4 on admission, WBC 16.3, suspected infection urinary tract infection) Probable urinary tract infection Appreciate ID input. Patient is currently on cefepime IV. Urine cultures pending. Stool studies are negative for Cryptosporidium, no WBCs seen in the stool, Giardia negative. Blood cultures negative so far. Flu negative. Acute diarrhea -stool studies are negative so far. C. difficile negative. If diarrhea persists, will consider antidiarrheal medications. HIV -patient has not been taking medications due to accessibility to proper health care. CD4 count and viral load pending. Restless leg syndrome -we will start patient on pramipexole 0.125 mg nightly. Full code. Ambulation. Sudheer Ojeda DO Aug 19, 2017 1:02 pm
[2017-08-19] MEDS ORDERED: FLUCONAZOLE 100 MG TAB PO ONE (15:30)
[2017-08-19 15:32] LABS: AUTOMATED NEUTROPHIL # 2.9 TH/MM3 (1.8-7.7); BASOPHIL % 0.3 % (0.0-2.0); EOSINOPHIL # 0.1 TH/MM3 (0-0.4); HEMATOCRIT 35.3 % (39.0-51.0); HEMOGLOBIN 12.3 GM/DL (13.0-17.0); LYMPHOCYTE # 1.1 TH/MM3 (1.0-4.8); MEAN CELL VOLUME 82.9 FL (80.0-100.0); MEAN CORPUSCULAR HEMOGLOBIN 28.8 PG (27.0-34.0); MEAN CORPUSCULAR HGB CONC 34.7 % (32.0-36.0); MEAN PLATELET VOLUME 9.4 FL (7.0-11.0); MONO % 9.2 % (0.0-8.0); MONOCYTE # 0.4 TH/MM3 (0-0.9); NEUT % 64.5 % (16.0-70.0); RED BLOOD COUNT 4.26 MIL/MM3 (4.50-5.90); RED CELL DISTRIBUTION WIDTH 13.2 % (11.6-17.2); WHITE BLOOD COUNT 4.5 TH/MM3 (4.0-11.0)
[2017-08-19 15:33] VITALS: RESP 16
[2017-08-19 15:36] LABS: PLATELET COUNT 18 TH/MM3 (150-450)
[2017-08-19 16:00] VITALS: BP 116/60; PULSE 87
[2017-08-19] MEDS ORDERED: PRAMIPEXOLE DIHYDROCHLORIDE 0.25 MG TAB PO SCH (21:00)
[2017-08-19] MEDS ORDERED: MICONAZOLE NITRATE 2% CREAM 15 GM TOPICAL SCH (21:00)
[2017-08-20] MEDS ORDERED: FLUCONAZOLE 100 MG TAB PO SCH (09:00)
[2017-08-20 11:28] LABS: OSMOTIC GAP ND (())
[2017-08-20 23:52] LABS: CD3-/CD16+CD56+ PERCENT 6 % (4-25); CD3-CD16+CD56+ (ABSOLUTE) 27 (70-760); LYMPHOCYTES, ABSOLUTE 468 (850-3900)
== END 2017-08-19 17:55 | disposition left against medical advice (07) | DRG 975 ==
LOC: NEPC 23:45 → NEDA 08-18 06:57 → OBSVTOIN 08-18 06:59 → NEDH 08-18 12:16 → N05A 08-18 15:59
PROVIDERS: ADMIT Hospitalist; ATTEND Hospitalist
DX: A41.9 Sepsis, unspecified organism (principal); B20 Human immunodeficiency virus [HIV] disease; N39.0 Urinary tract infection, site not specified; D69.6 Thrombocytopenia, unspecified; B86 Scabies; E11.9 Type 2 diabetes mellitus without complications; M25.50 Pain in unspecified joint; M79.1 Myalgia; R21 Rash and other nonspecific skin eruption; R35.0 Frequency of micturition; R45.1 Restlessness and agitation; R19.7 Diarrhea, unspecified; G25.81 Restless legs syndrome; Z86.19 Personal history of other infectious and parasitic diseases; Z59.0 Homelessness; Z91.14 Patient's other noncompliance with medication regimen; Z91.19 Patient's noncompliance with other medical treatment and regimen; F17.210 Nicotine dependence, cigarettes, uncomplicated
CPT/HCPCS: 71045; 80048; 80053; 80074; 80307; 81001; 82010; 82438; 82550; 83605; 83690; 83735; 84100; 84302; 84999; 85025; 86355; 86357; 86359; 86360; 86592; 86593; 86780; 87015; 87040; 87086; 87103; 87116; 87205; 87207; 87328; 87329; 87491; 87493; 87506; 87535; 87591; 87804; 96361; 96365; 96375; 99285; J0692; J0696; J3370; J7030; J7050